=== PATIENT | male | born 1955 | race Caucasian/White ===

== ENCOUNTER → 2017-11-12 10:28 | Outpatient (CLI) | payer MEDICARE, MEDICAID, SELFPAY ==
[2017-11-12 13:44] LABS: Hematocrit 40.7 % (40-54); Hemoglobin 13.5 g/dl (13.0-16.5); Mean Corp Hgb Conc 33.2 g/gl (32-36); Mean Corpuscular Volume 93.3 fL (80-94); Mean Platelet Vol. 10.7 fl (6.2-12.0); Platelet Count 283 K/mm3 (150-450); RBC Distribution Width CV 15.9 % (11.6-14.6); RBC Distribution Width SD 53.3 fl (35.1-43.9); Red Blood Count 4.36 M/mm3 (4.6-6.2); White Blood Count 9.8 K/mm3 (4.4-11.0)
[2017-11-12 13:45] LABS: Scan Indicated on CBC? Y/N NO
[2017-11-12 13:57] LABS: Hemoglobin A1c 7.2 % (4.2-6.3)
[2017-11-12 14:00] LABS: Albumin, Serum 3.4 g/dL (3.2-5.0); BUN 59 mg/dL (7-18); BUN/Creat Ratio 27.2 RATIO (10-20); Calcium,Total 9.2 mg/dL (8.5-10.1); Chloride 99 mmol/L (98-107); Creatinine, Serum 2.17 mg/dL (0.70-1.30); EST Glomerular Filtration Rate 33 mL/min (>60); Est Glom Filt Rate - Afr Amer 40 mL/min (>60); Glucose 100 mg/dL (74-106); Phosphorus 3.3 mg/dL (2.5-4.9); Potassium 5.4 mmol/L (3.5-5.1); Sodium Level 137 mmol/L (136-145)
[2017-11-13 09:58] LABS: PTHIN 77.3 pg/mL (18.4-80.1)
== END ==
PROVIDERS: Family Provider Family Medicine; PCP Family Medicine; Visit Provider Internal Medicine Nephrology
DX: E11.22 Type 2 diabetes mellitus with diabetic chronic kidney disease (principal); N18.3 Chronic kidney disease, stage 3 (moderate)
CPT/HCPCS: 36415; 80069; 83036; 83970; 85027

== ENCOUNTER → 2017-11-18 09:18 | Outpatient (CLI) | payer MEDICARE, MEDICAID, SELFPAY ==
--- NOTE | 2017-11-18 09:34 | US_ITS ---
US Kidney(s) complete (eg, kidneys T bladder) INDICATION: ckd 3 COMPARISON: None TECHNIQUE: Ultrasonographic grayscale and limited Doppler investigation of the retroperitoneum including kidneys and urinary bladder FINDINGS: The right kidney measures 10.2 x 5.4 x 5.2 cm and demonstrates a cortical thickness of 1.2 cm. There is no evidence of hydronephrosis. A 1 cm shadowing calculus is noted in the midpole region. The left kidney measures 11.2 x 4.5 x 4.9 cm with a cortical thickness of 1.4 cm. There is no evidence of hydronephrosis. A 1 cm shadowing calculus is noted in the midpole region. The urinary bladder contains 176 mL at the time of the scan and appears within normal limits. The right ureteral jet was not visualized. The left ureteral jet was visualized. US/Kidney and Bladder IMPRESSION: Bilateral nephrolithiasis with single 1 cm bilateral renal stones. No evidence of hydronephrosis. at 1747 Reported and signed by: Zonia Christian MD Electronically Signed: Zonia Christian MD at 17:45 EDT Tel , Service support ,
[2017-11-18 10:42] LABS: 24HR. UA Prot. Total Volume 3000 mL
[2017-11-18 11:23] LABS: Albumin, Serum 3.4 g/dL (3.2-5.0); BUN 32 mg/dL (7-18); BUN/Creat Ratio 19.2 RATIO (10-20); Calcium,Total 8.9 mg/dL (8.5-10.1); Chloride 100 mmol/L (98-107); Creatinine, Serum 1.67 mg/dL (0.70-1.30); EST Glomerular Filtration Rate 44 mL/min (>60); Est Glom Filt Rate - Afr Amer 54 mL/min (>60); Glucose 61 mg/dL (74-106); Phosphorus 2.7 mg/dL (2.5-4.9); Potassium 4.3 mmol/L (3.5-5.1); Sodium Level 140 mmol/L (136-145)
[2017-11-18 12:09] LABS: Creat.Clear Total Volume 3000 mL; Creatinine Clearance 59 ml/min (100-200); Creatinine Serum Creat 1.7 mg/dL (0.8-1.3); Creatinine Urine 47.2 mg/dL (NO RANGE EST.); EST Glomerular Filtration Rate 44 mL/min (>60); Est Glom Filt Rate - Afr Amer 54 mL/min (>60)
== END ==
PROVIDERS: Family Provider Family Medicine; PCP Family Medicine; Visit Provider Internal Medicine Nephrology
DX: N17.9 Acute kidney failure, unspecified (principal); N18.3 Chronic kidney disease, stage 3 (moderate); N20.0 Calculus of kidney
CPT/HCPCS: 76770; 80069; 82575; 84156

== ENCOUNTER 2017-12-03 14:05 | Outpatient (RCR) | payer MEDICARE, MEDICAID, SELFPAY | END 2017-12-03 23:59 | LOC: DC 14:05 | PROVIDERS: Family Provider Family Medicine; PCP Family Medicine; Visit Provider Internal Medicine Nephrology | DX: E11.9 Type 2 diabetes mellitus without complications (principal); N18.3 Chronic kidney disease, stage 3 (moderate); Z71.3 Dietary counseling and surveillance | CPT/HCPCS: G0108 ==

== ENCOUNTER → 2017-12-22 10:32 | Outpatient (CLI) | payer MEDICARE, SELFPAY | PROVIDERS: Family Provider Family Medicine; PCP Family Medicine; Visit Provider Internal Medicine Nephrology | DX: N18.3 Chronic kidney disease, stage 3 (moderate) (principal) ==

== ENCOUNTER → 2017-12-22 10:53 | Outpatient (CLI) | payer MEDICARE, SELFPAY ==
[2017-12-22 12:56] LABS: Hematocrit 40.9 % (40-54); Hemoglobin 13.5 g/dl (13.0-16.5); Mean Corpuscular Hgb 31.2 pg (27.0-32.0); Mean Corpuscular Volume 94.5 fL (80-94); Mean Platelet Vol. 10.3 fl (6.2-12.0); Platelet Count 380 K/mm3 (150-450); RBC Distribution Width CV 17.8 % (11.6-14.6); RBC Distribution Width SD 59.9 fl (35.1-43.9); Red Blood Count 4.33 M/mm3 (4.6-6.2)
[2017-12-22 12:57] LABS: Scan Indicated on CBC? Y/N NO
[2017-12-22 13:12] LABS: Albumin, Serum 3.3 g/dL (3.2-5.0); BUN 40 mg/dL (7-18); BUN/Creat Ratio 23.4 RATIO (10-20); Calcium,Total 9.2 mg/dL (8.5-10.1); Chloride 100 mmol/L (98-107); Creatinine, Serum 1.71 mg/dL (0.70-1.30); EST Glomerular Filtration Rate 43 mL/min (>60); Est Glom Filt Rate - Afr Amer 52 mL/min (>60); Glucose 81 mg/dL (74-106); Phosphorus 3.7 mg/dL (2.5-4.9); Potassium 4.7 mmol/L (3.5-5.1); Sodium Level 137 mmol/L (136-145)
[2017-12-22 13:21] LABS: Hemoglobin A1c 6.9 % (4.2-6.3)
[2017-12-23 08:42] LABS: PTHIN 56.4 pg/mL (18.4-80.1)
== END ==
PROVIDERS: Family Provider Family Medicine; PCP Family Medicine; Visit Provider Internal Medicine Nephrology
DX: E87.5 Hyperkalemia (principal); N17.9 Acute kidney failure, unspecified; E11.22 Type 2 diabetes mellitus with diabetic chronic kidney disease; N18.3 Chronic kidney disease, stage 3 (moderate)
CPT/HCPCS: 36415; 80069; 83036; 83970; 85027

== ENCOUNTER → 2018-02-11 09:12 | Outpatient (CLI) | payer MEDICARE, SELFPAY | PROVIDERS: Family Provider Family Medicine; PCP Family Medicine; Visit Provider Family Medicine | DX: E11.9 Type 2 diabetes mellitus without complications (principal) | CPT/HCPCS: 36415 ==

== ENCOUNTER → 2018-07-20 12:11 | Outpatient (CLI) | payer MEDICARE, SELFPAY ==
[2018-07-20 11:30] VITALS: BMI 34.8
[2018-07-20 14:35] LABS: AST(SGOT) 17 U/L (15-37); Alanine Aminotransfer ALT/SGPT 13 U/L (16-61); Albumin, Serum 3.4 g/dL (3.2-5.0); Alkaline Phosphatase 63 U/L (45-117); Anion Gap 8 (5-15); BUN 31 mg/dL (7-18); BUN/Creat Ratio 17.6 RATIO (10-20); Bilirubin, Direct 0.15 mg/dL (0.00-0.30); Calcium,Total 9.2 mg/dL (8.5-10.1); Chloride 99 mmol/L (98-107); Cholesterol 174 mg/dL (200); Creatinine, Serum 1.76 mg/dL (0.70-1.30); EST Glomerular Filtration Rate 42 mL/min (>60); Est Glom Filt Rate - Afr Amer 50 mL/min (>60); Globulin 4.1 g/dL (2.2-4.2); Glucose 60 mg/dL (74-106); High Density Lipoprotein 35 mg/dL; Potassium 4.6 mmol/L (3.5-5.1); Protein, Total 7.5 g/dL (6.4-8.2); Sodium Level 141 mmol/L (136-145); Triglycerides 185 mg/dL; Very Low Density Lipoprotein 37 mg/dL (5-40)
== END ==
PROVIDERS: Family Provider Family Medicine; PCP Family Medicine; Referring Provider Internal Medicine Cardiovascular Disease; Visit Provider Internal Medicine Cardiovascular Disease
DX: E78.5 Hyperlipidemia, unspecified (principal); I10 Essential (primary) hypertension
CPT/HCPCS: 36415; 80048; 80061; 80076

== ENCOUNTER → 2018-09-27 09:13 | Outpatient (CLI) | payer MEDICARE, SELFPAY ==
[2018-07-20 11:30] VITALS: BMI 34.8
[2018-09-27 11:07] LABS: Anion Gap 4 (5-15); BUN 22 mg/dL (7-18); BUN/Creat Ratio 14.6 RATIO (10-20); Calcium,Total 8.9 mg/dL (8.5-10.1); Chloride 103 mmol/L (98-107); Creatinine, Serum 1.51 mg/dL (0.70-1.30); EST Glomerular Filtration Rate 50 mL/min (>60); Est Glom Filt Rate - Afr Amer 60 mL/min (>60); Glucose 58 mg/dL (74-106); Potassium 4.7 mmol/L (3.5-5.1); Sodium Level 139 mmol/L (136-145)
== END ==
PROVIDERS: Family Provider Family Medicine; PCP Family Medicine; Referring Provider Family Medicine; Visit Provider Family Medicine
DX: N28.9 Disorder of kidney and ureter, unspecified (principal)
CPT/HCPCS: 36415; 80048

== ENCOUNTER → 2019-02-07 07:48 | Outpatient (CLI) | payer MEDICARE, SELFPAY ==
[2019-01-28 14:53] VITALS: BMI 33.6
--- NOTE | 2019-02-07 07:49 | AAVD_ITS ---
Reason For Study: AAA Aorta Measurements Aorta Doppler Measurements Proximal aorta measures1.62 x 1.61cm. in cross- Peak systolic flow velocities within the proximal sectional axis. aorta measure 55.6 cm/sec. Proximal aorta measures1.71cm. in longitudinal Peak systolic flow velocities within the mid aorta axis. measure 42.4 cm/sec. Mid aorta measures3.33 x 3.27cm. in cross- Peak systolic flow velocities within the distal sectional axis. aorta measure 40.6 cm/sec. Mid aorta measures3.30cm. in longitudinal axis. Distal aorta measures2.96 x 2.96cm. in cross- sectional axis. Distal aorta measures2.95cm. in longitudinal axis. Left Iliac Artery Unable to visualize Lt Iliac artery due to bowel gas and pt body habitus. Right Iliac Artery Unable to visualize Rt Iliac artery due to bowel gas and pt body habitus. Procedure Aorta IVC Iliac vasculature or bypass grafts [id number]. Technically difficult due to pt body habitus and bowel gas. Exam performed in department. Interpretation Summary Mid infra renal aorta 3.33 x 3.27cm aneurysm Body habitus and bowel gas prevent inspecton of bilateral common iliac arteries. Ordering Physician: Marcie Hernandez Referring Physician: Dmitry Davidson Performed By: Amelia Arias RVT
== END ==
PROVIDERS: Family Provider Family Medicine; PCP Family Medicine; Referring Provider Physician Assistant Medical; Visit Provider Physician Assistant Medical
DX: I25.708 Atherosclerosis of coronary artery bypass graft(s), unspecified, with other forms of angina pectoris (principal); I71.4 Abdominal aortic aneurysm, without rupture; I10 Essential (primary) hypertension
CPT/HCPCS: 93978

== ENCOUNTER → 2019-02-21 08:43 | Outpatient (CLI) | payer MEDICARE, SELFPAY ==
[2019-01-28 14:53] VITALS: BMI 33.6
[2019-02-21 10:37] LABS: AST(SGOT) 16 U/L (15-37); Alanine Aminotransfer ALT/SGPT 11 U/L (16-61); Albumin, Serum 3.3 g/dL (3.2-5.0); Alkaline Phosphatase 69 U/L (45-117); Bilirubin, Direct 0.11 mg/dL (0.00-0.30); Cholesterol 183 mg/dL (200); Globulin 4.3 g/dL (2.2-4.2); High Density Lipoprotein 30 mg/dL; Protein, Total 7.6 g/dL (6.4-8.2); Triglycerides 236 mg/dL; Very Low Density Lipoprotein 47 mg/dL (5-40)
== END ==
PROVIDERS: Family Provider Family Medicine; PCP Family Medicine; Referring Provider Physician Assistant Medical; Visit Provider Physician Assistant Medical
DX: I25.708 Atherosclerosis of coronary artery bypass graft(s), unspecified, with other forms of angina pectoris (principal); I10 Essential (primary) hypertension; E78.00 Pure hypercholesterolemia, unspecified
CPT/HCPCS: 36415; 80061; 80076

== ENCOUNTER → 2019-10-28 09:04 | Outpatient (CLI) | payer MEDICARE, SELFPAY ==
[2019-01-28 14:53] VITALS: BMI 33.6
[2019-10-28 10:16] LABS: International Normalized Ratio 2.8; Prothrombin Time (Protime)PT. 28.8 SECONDS (11.7-14.9)
== END ==
PROVIDERS: PCP Family Medicine; Referring Provider Family Medicine; Visit Provider Family Medicine
DX: I71.4 Abdominal aortic aneurysm, without rupture (principal)
CPT/HCPCS: 36415; 85610

== ENCOUNTER 2019-11-25 08:26 | Outpatient (RCR) | payer MEDICARE, SELFPAY ==
[2019-01-28 14:53] VITALS: BMI 33.6
[2019-11-25 10:32] LABS: International Normalized Ratio 1.9; Prothrombin Time (Protime)PT. 21.5 SECONDS (11.7-14.9)
== END 2019-11-25 18:00 | disposition home or self-care (01) ==
LOC: MTLAB 08:26
PROVIDERS: PCP Family Medicine; Referring Provider Family Medicine; Visit Provider Family Medicine
DX: Z86.73 Personal history of transient ischemic attack (TIA), and cerebral infarction without residual deficits (principal)
CPT/HCPCS: 36415; 85610

== ENCOUNTER → 2020-02-17 11:44 | Outpatient (CLI) | payer MEDICARE, SELFPAY ==
[2019-12-06 09:50] VITALS: BMI 33.8
[2020-02-17 15:33] LABS: PSA,Total- Diagnostic 0.33 ng/mL (0.0-4.0)
== END ==
PROVIDERS: Family Medicine; PCP Family Medicine; Referring Provider Family Medicine; Visit Provider Family Medicine
DX: R39.11 Hesitancy of micturition (principal)
CPT/HCPCS: 36415; 84153; 87086; 87088

== ENCOUNTER → 2020-03-20 07:50 | Outpatient (CLI) | payer MEDICARE, SELFPAY ==
[2020-03-13 09:16] VITALS: BMI 34.6
--- NOTE | 2020-03-20 07:52 | AAVD_ITS ---
Reason For Study: infrarenal aneurysm Aorta Measurements Aorta Doppler Measurements Proximal aorta measures1.95 x 1.95cm. in cross- Peak systolic flow velocities within the proximal sectional axis. aorta measure 134.8 cm/sec. Proximal aorta measures2.0cm. in longitudinal Peak systolic flow velocities within the mid aorta axis. measure 44.3 cm/sec. Mid aorta measures3.28 x 3.4cm. in cross-sectionalPeak systolic flow velocities within the distal axis. aorta measure 79.4 cm/sec. Mid aorta measures3.18cm. in longitudinal axis. Distal aorta measures1.52 x 1.59cm. in cross- sectional axis. Distal aorta measures1.67cm. in longitudinal axis. Left Iliac Artery Unable to visualize Lt Iliac artery due to bowel gas and pt body habitus. Right Iliac Artery Unable to visualize Lt Iliac artery due to bowel gas and pt body habitus. Procedure Aorta IVC Iliac vasculature or bypass grafts [id number]. The exam was diagnostic. Difficult study due to bowel gas and body habitus. Pt ate this AM due to low blood sugar. Exam performed in department. Interpretation Summary 3.28 x 3.4 cm infrarenal abdominal aortic aneurysm Limited examination and unable to visualize iliacs secondary to bowel gas and body habitus. Slightly increased flow velocity proximal aorta Previously 3.33 x 3.27cm on 02/07/19. No significant change Ordering Physician: Marcie Hernandez Performed By: Donnie Wilkes, RVT
== END ==
PROVIDERS: PCP Family Medicine; Referring Provider Physician Assistant Medical; Visit Provider Physician Assistant Medical
DX: I10 Essential (primary) hypertension (principal); I71.4 Abdominal aortic aneurysm, without rupture
CPT/HCPCS: 93978

== ENCOUNTER → 2020-04-11 09:29 | Outpatient (CLI) | payer MEDICARE, SELFPAY ==
[2020-03-13 09:16] VITALS: BMI 34.6
[2020-04-11 10:21] LABS: AST(SGOT) 18 U/L (15-37); Alanine Aminotransfer ALT/SGPT 13 U/L (16-61); Albumin, Serum 3.1 g/dL (3.2-5.0); Alkaline Phosphatase 79 U/L (45-117); Bilirubin, Direct 0.14 mg/dL (0.00-0.30); Cholesterol 157 mg/dL (200); Globulin 4.7 g/dL (2.2-4.2); High Density Lipoprotein 34 mg/dL; Protein, Total 7.8 g/dL (6.4-8.2); Triglycerides 193 mg/dL; Very Low Density Lipoprotein 39 mg/dL (5-40)
[2020-04-11 10:30] LABS: ALB/GLOB Ratio 0.7 RATIO (0.9-2.4); AST(SGOT) 14 U/L (15-37); Alanine Aminotransfer ALT/SGPT 10 U/L (16-61); Albumin, Serum 3.1 g/dL (3.2-5.0); Alkaline Phosphatase 78 U/L (45-117); Anion Gap 6 (5-15); BUN 29 mg/dL (7-18); BUN/Creat Ratio 16.3 RATIO (10-20); Calcium,Total 9.4 mg/dL (8.5-10.1); Chloride 104 mmol/L (98-107); Creatinine, Serum 1.78 mg/dL (0.70-1.30); EST Glomerular Filtration Rate 41 mL/min (>60); Est Glom Filt Rate - Afr Amer 49 mL/min (>60); Globulin 4.6 g/dL (2.2-4.2); Glucose 79 mg/dL (74-106); Potassium 4.5 mmol/L (3.5-5.1); Protein, Total 7.7 g/dL (6.4-8.2); Sodium Level 139 mmol/L (136-145)
== END ==
PROVIDERS: Physician Assistant Medical; PCP Family Medicine; Referring Provider Family Medicine; Visit Provider Family Medicine
DX: E11.40 Type 2 diabetes mellitus with diabetic neuropathy, unspecified (principal); I25.10 Atherosclerotic heart disease of native coronary artery without angina pectoris; I25.5 Ischemic cardiomyopathy
CPT/HCPCS: 36415; 80053; 80061; 80076

== ENCOUNTER → 2020-07-09 08:54 | Outpatient (CLI) | payer MEDICARE, SELFPAY ==
[2020-03-13 09:16] VITALS: BMI 34.6
[2020-07-09 10:45] LABS: Anion Gap 4 (5-15); BUN 37 mg/dL (7-18); BUN/Creat Ratio 17.2 RATIO (10-20); Calcium,Total 9.5 mg/dL (8.5-10.1); Chloride 99 mmol/L (98-107); Creatinine, Serum 2.15 mg/dL (0.70-1.30); EST Glomerular Filtration Rate 33 mL/min (>60); Est Glom Filt Rate - Afr Amer 40 mL/min (>60); Glucose 93 mg/dL (74-106); Potassium 4.5 mmol/L (3.5-5.1); Sodium Level 134 mmol/L (136-145)
== END ==
PROVIDERS: PCP Family Medicine; Visit Provider Family Medicine
DX: N28.9 Disorder of kidney and ureter, unspecified (principal)
CPT/HCPCS: 36415; 80048

== ENCOUNTER → 2020-07-30 08:52 | Outpatient (CLI) | payer MEDICARE, SELFPAY ==
[2020-03-13 09:16] VITALS: BMI 34.6
[2020-07-30 10:04] LABS: Prothrombin Time (Protime)PT. 47.6 SECONDS (11.7-14.9)
[2020-07-30 10:19] LABS: International Normalized Ratio 5.1
== END ==
PROVIDERS: PCP Family Medicine; Referring Provider Nurse Practitioner Adult Health; Visit Provider Nurse Practitioner Adult Health
DX: I63.9 Cerebral infarction, unspecified (principal)
CPT/HCPCS: 36415; 85610

== ENCOUNTER → 2020-10-11 09:14 | Outpatient (CLI) | payer MEDICARE, SELFPAY ==
[2020-03-13 09:16] VITALS: BMI 34.6
[2020-10-11 11:05] LABS: Anion Gap 5 (5-15); BUN 29 mg/dL (7-18); BUN/Creat Ratio 16.3 RATIO (10-20); Calcium,Total 9.1 mg/dL (8.5-10.1); Chloride 98 mmol/L (98-107); Cholesterol 194 mg/dL (200); Creatinine, Serum 1.78 mg/dL (0.70-1.30); EST Glomerular Filtration Rate 41 mL/min (>60); Est Glom Filt Rate - Afr Amer 49 mL/min (>60); Glucose 132 mg/dL (74-106); High Density Lipoprotein 38 mg/dL; Potassium 4.4 mmol/L (3.5-5.1); Sodium Level 136 mmol/L (136-145); Triglycerides 247 mg/dL; Very Low Density Lipoprotein 49 mg/dL (5-40)
[2020-10-11 13:15] LABS: Microalbumin,Random Urine 13.6 mg/L (NO RANGE EST.); Microalbumin:Creatinine Ratio 91.3 mg/g CRE (<30 mg/g CRE)
== END ==
PROVIDERS: PCP Family Medicine; Referring Provider Family Medicine; Visit Provider Family Medicine
DX: E11.9 Type 2 diabetes mellitus without complications (principal)
CPT/HCPCS: 36415; 80048; 80061; 82043; 82570

== ENCOUNTER → 2020-11-22 06:46 | Outpatient (CLI) | payer MEDICARE, SELFPAY ==
[2020-11-08 10:11] VITALS: BMI 34.6
--- NOTE | 2020-11-22 17:02 | STRESSREP ---
Stress Test Report Pharmacologic myocardial perfusion stress test. 65-year-old man with a history of coronary artery bypass surgery. Stress protocol: Resting EKG demonstrates sinus rhythm with a rate of 92 bpm and incomplete left bundle branch block is noted resting blood pressure is 110/68 mmHg. 0.4 mg of regadenoson was infused per usual protocol followed byIntravenous saline flush injection continuous EKG monitoring was performed. Patient maintained sinus rhythm throughout the recording. Nonspecific left bundle branch block changes were noted throughout the infusion. The maximum heart rate 104 bpm which was 67% of maximum predicted heart rate the maximum workload was 1 metabolic equivalent. The final blood pressure was 108/70 mmHg. Myocardial perfusion protocol. 14.8 mCi of technetium 99m sestamibi was injected at rest. 0.4 mg of regadenoson was infused per usual protocol. At peak infusion 44.1 mCi of technetium 99m sestamibi was injected stress images were obtained stress and rest images were reconstructed and compared in the short axis vertical long and horizontal long axis. Gated images were also obtained to Perfusion SPECT analysis: Review of the stress images demonstrated dilated cardiac silhouette size. There is a medium-sized perfusion defect noted involving the mid anterior wall extending to the apex. The anterior septal wall also has reduced perfusion. There is also an area of reduced perfusion involving the inferior septal wall. On the resting images there is an identical pattern noted in these areas suggestive of a previous anterior apical infarct, and inferior septal infarct. No obvious areas of improvement are noted to suggest ischemia. Gated SPECT analysis: The gated ejection fraction demonstrates a dilated cardiac silhouette with wall motion abnormalities and estimated ejection fraction of 29%. Conclusion: Pharmacologic myocardial perfusion stress test with evidence of anterior apical infarct. Previous inferior septal basal infarct present. Dilated ischemic cardiomyopathy present
== END ==
PROVIDERS: PCP Family Medicine; Referring Provider Physician Assistant Medical; Visit Provider Physician Assistant Medical
DX: I25.10 Atherosclerotic heart disease of native coronary artery without angina pectoris (principal); I25.810 Atherosclerosis of coronary artery bypass graft(s) without angina pectoris
CPT/HCPCS: 78452; 93017; A9500; A4216; J2785

== ENCOUNTER → 2021-01-11 08:36 | Outpatient (CLI) | payer MEDICARE, SELFPAY ==
[2020-11-08 10:11] VITALS: BMI 34.6
[2021-01-11 12:48] LABS: Anion Gap 8 (5-15); BUN 32 mg/dL (7-18); BUN/Creat Ratio 17.8 RATIO (10-20); Calcium,Total 9.4 mg/dL (8.5-10.1); Chloride 96 mmol/L (98-107); Cholesterol 189 mg/dL (200); EST Glomerular Filtration Rate 40 mL/min (>60); Est Glom Filt Rate - Afr Amer 49 mL/min (>60); Glucose 93 mg/dL (74-106); High Density Lipoprotein 36 mg/dL; Potassium 4.6 mmol/L (3.5-5.1); Sodium Level 136 mmol/L (136-145); Triglycerides 177 mg/dL
[2021-01-11 12:49] LABS: Very Low Density Lipoprotein 35 mg/dL (5-40)
[2021-01-11 12:54] LABS: Microalbumin,Random Urine 58.6 mg/L (NO RANGE EST.); Microalbumin:Creatinine Ratio 88.7 mg/g CRE (<30 mg/g CRE)
[2021-01-11 12:58] LABS: BNP,B-Type NATRIURETIC PEPTIDE 411.1 pg/mL (0-100)
== END ==
PROVIDERS: PCP Family Medicine; Visit Provider Family Medicine
DX: E78.5 Hyperlipidemia, unspecified (principal); R06.02 Shortness of breath
CPT/HCPCS: 36415; 80048; 80061; 82043; 82570; 83880

== ENCOUNTER → 2021-01-16 13:56 | Outpatient (CLI) | payer MEDICARE, SELFPAY ==
[2020-11-08 10:11] VITALS: BMI 34.6
--- NOTE | 2021-01-16 13:59 | ECHOCS_ITS ---
Reason For Study: SOB Procedure This was a 2D Doppler, Color Flow transthoracic echocardiogram. The study was technically difficult. Due to body habitus. Contrast injection was performed. Exam performed in department. Left Ventricle Normal LV size. The estimated ejection fraction is 30 %. Moderately severe segmental systolic dysfunction (see wall motion). Vowinckel : Akinetic. Mid-Anterior : Akinetic. Mid-anteroseptal : Akinetic. Septal Vowinckel : Hypokinetic. Right Ventricle Normal RV size. ICD or pacer leads identified within the right ventricle. Normal systolic function. Mitral Valve Mitral valve not well visualized. Tricuspid Valve The tricuspid valve is not well visualized. Pericardium/Pleural No pericardial effusion. Medication 22 gauge I.V. with prn adaptor inserted into right arm. Diluted definity 2.4ml given slow IV push to enhance endocardial definition. MMode/2D Measurements & Calculations LVIDd: 6.2 cm IVSd: 0.91 cm Ao root diam: 2.9 cm LVIDs: 5.2 cm LVPWd: 1.1 cm FS: 15.3 % LAV(MOD-bp): 56.1 ml LA dimension(2D): 3.5 cm LA A4 area: 18.3 cm2 LAV(MOD-bp) Indexed: 26.8 ml/m2 LAV(MOD-sp2): 64.3 ml LAV(MOD-sp4): 47.6 ml Doppler Measurements & Calculations MV E max ramses: 56.3 cm/sec Lat Peak E' Ramses: 6.2 cm/sec Med Peak E' Ramses: 4.3 cm/sec MV A max ramses: 93.3 cm/sec E/E' lat: 9.1 E/E' med: 13.0 MV E/A: 0.60 Ao V2 max: 144.9 cm/sec LV V1 max: 92.3 cm/sec PA V2 max: 125.5 cm/sec Ao max P.4 mmHg LV V1 max P.4 mmHg ECHO/Echo Complete W/ Contrast Interpretation Summary Normal LV size. The estimated ejection fraction is 30 %. Moderately severe segmental systolic dysfunction (see wall motion). Contrast injection was performed. Compared to previous study, the left ventricu lar systolic function is the same.. Ordering Physician: Dmitry Davidson Referring Physician: Dmitry Davidson Performed By: Nuha Whalen, ARMANDO, RVT
== END ==
PROVIDERS: PCP Family Medicine; Visit Provider Family Medicine
DX: R06.02 Shortness of breath (principal)
CPT/HCPCS: 93306; Q9957; A4216; C8929; J3490

== ENCOUNTER 2021-04-09 08:01 | Inpatient (IN) | payer MEDICARE, SELFPAY ==
[2021-04-09] VITALS (16 sets, daily range): BP systolic 97–142; BP diastolic 47–93; PULSE 74–84; RESP 15–34; TEMP 36.4–36.9; O2SAT 87–96; BMI 34.2; BMI 33.5
--- NOTE | 2021-04-09 08:14 | EKG12_ITS ---
Test Reason : SOB Blood Pressure : / mmHG Vent. Rate : 076 BPM Atrial Rate : 085 BPM P-R Int : 000 ms QRS Dur : 128 ms QT Int : 422 ms P-R-T Axes : 000 097 236 degrees QTc Int : 474 ms Sinus rhythm Non-specific intra-ventricular conduction block Nonspecific T wave abnormality Abnormal ECG Confirmed by KAROLINA ALVARENGA, ROBERTO ([id number]), timber spotter PB METZ ([id number]) on 04/15/2021 9:23:47 A M Referred By: JEFFREY Confirmed By:ADELINA TURCIOS MD
--- NOTE | 2021-04-09 08:15 | EDS_ITS ---
HPI History of Present Illness Chief Complaint: Shortness of Breath Narrative Narrative: 65-year-old male with history of CHF, ischemic cardiomyopathy, hypertension, COPD presenting with dyspnea. He states is been ongoing for a couple of weeks. Patient states that his primary care provider provided him steroids and an albuterol inhaler but he has not improved. He has an old oxygen concentrator which he has been using without a prescription. He states that he did had used this in the past. Patient has been wearing 4 to 5 L at home. Patient also has CPAP but does not use this. He states that he is supposed to but does not. Patient is denying any chest pain but does admit to a cough. He states that his lower extremities have slightly more edema and he is on 80 of Lasix daily which has been unchanged for about a year. No fever, cough, change in taste or smell. No body aches. [facility] Medical History Abdominal aortic aneurysm Aneurysm of infrarenal abdominal aorta Atherosclerosis of coronary artery bypass graft(s), unspecified, with other forms of angina pectoris Atherosclerosis of coronary artery without angina pectoris Bilateral leg edema Chronic systolic CHF (congestive heart failure) COPD (chronic obstructive pulmonary disease) Diabetes mellitus type 2 with complications Diabetic neuropathy Essential (primary) hypertension Hyperlipidemia Incomplete left bundle branch block Ischemic cardiomyopathy long term care social worker current use of anticoagulant Obesity Obstructive sleep apnea Old anterior wall myocardial infarction Renal insufficiency TIA (transient ischemic attack) Home Medications atorvastatin 40 mg PO QHS 10/07/15 [History Last Taken Unknown] insulin detemir U-100 85 units SC BREAKFAST 10/07/15 [History Last Taken 01/15/17 1/2 dose] isosorbide mononitrate 120 mg PO DAILY 10/07/15 [History Last Taken 01/15/17] metoprolol tartrate 100 mg PO BID 10/07/15 [History Last Taken 01/15/17] multivitamin 1 ea PO DAILY 10/07/15 [History Last Taken Unknown] insulin detemir U-100 100 unit SQ QHS 01/14/17 [History Last Taken Unknown] insulin lispro 100 unit/mL subcutaneous cartridge 1 sliding scale dose SC UD PRN ml 07/10/17 [History Last Taken Unknown] warfarin 5 mg tablet 5 mg PO .COMPLEX 07/10/17 [History Last Taken Unknown] esomeprazole magnesium 40 mg capsule,delayed release 40 mg PO QDAY cap 08/21/17 [History Last Taken Unknown] fluticasone 250 mcg-salmeterol 50 mcg/dose blistr powdr for inhalation 1 inh INHALATION BID 03/13/20 [History Last Taken Unknown] ipratropium 20 mcg-albuterol 100 mcg/actuation mist for inhalation 1 puff INHALATION Q6H 03/13/20 [History Last Taken Unknown] furosemide 80 mg tablet 80 mg PO QDAY #90 tab 06/27/20 [Rx Last Taken Unknown] enalapril maleate 5 mg tablet See Rx Instructions .ROUTE .COMPLEX #90 tablet 10/05/20 [Rx Last Taken Unknown] albuterol sulfate 90 mcg/actuation aerosol inhaler 1 inh INHALATION ONCE 11/08/20 [History Last Taken Unknown] isosorbide mononitrate 60 mg tablet,extended release 24 hr 60 mg PO QPM #90 tab 11/08/20 [Rx Last Taken Unknown] ranolazine 1,000 mg tablet,extended release,12 hr 1,000 mg PO BID #180 tab 12/19/20 [Rx Last Taken Unknown] nitroglycerin 0.4 mg sublingual tablet 0.4 mg SUBLINGUAL Q5-15M PRN #25 tab 03/08/21 [Rx Last Taken Unknown] Allergy/AdvReac Type Severity Reaction Status Date / Time acetaminophen [From Percocet] Allergy Unknown Verified 04/09/21 08:09 buspirone [From BuSpar] Allergy Unknown Verified 04/09/21 08:09 Gadolinium-MRI Contrast Allergy Unknown Verified 04/09/21 08:09 Medium [DYE] nifedipine [From Procardia] Allergy Unknown Verified 04/09/21 08:09 oxycodone [From Percocet] Allergy Unknown Verified 04/09/21 08:09 Penicillins Allergy Unknown Verified 04/09/21 08:09 rosuvastatin [From Crestor] Allergy Unknown Verified 04/09/21 08:09 morphine AdvReac Other Verified 04/09/21 08:09 Family History Father , age 65 CVA (cerebral vascular accident) of CVA during cardiac surgery; also had previous CVA's Myocardial infarction First IN age 60, had multiple IN's Mother Breast cancer COPD (chronic obstructive pulmonary disease) Diabetes Brother , age 52 from sepsis CAD (coronary artery disease) Brother , age 52 after 3 vessel CABG CAD (coronary artery disease) Hx of CABG Sister , age 61 complications of MRSA s/p CABG, 5 vessel CAD (coronary artery disease) Myocardial infarction, Onset Age: 40 Hx of CABG Sister CAD (coronary artery disease) HX PTCA Myocardial infarction, Onset Age: 40 Sister CAD (coronary artery disease) Hx of CABG Myocardial infarction, Onset Age: 58 Sister , in MVA No problems noted. Sister CAD (coronary artery disease) Myocardial infarction, Onset Age: 40 CVA (cerebral vascular accident) had 3 strokes Grandfather , age62 CAD (coronary artery disease) Sudden cardiac Myocardial infarction Surgical History H/O coronary artery bypass surgery History of electrophysiologic study (2004) History of implantable cardiac defibrillator (ICD) (01/15/17) History of left heart catheterization (01/2010) Stented coronary artery Social History Smoking Status: Former smoker ROS ROS ED Constitutional Constitutional ED: Denies chills or fever(s) Eyes Eyes: Denies blurry vision or diplopia ENT ENT ED: Denies rhinorrhea or sore throat Cardiovascular Cardiovascular: Denies chest pain or palpitations Respiratory/Chest Respiratory/Chest: Reports cough, dyspnea and dyspnea on exertion Gastrointestinal Gastrointestinal: Denies abdominal pain, nausea or vomiting Genitourinary Genitourinary ED: Denies dysuria or hematuria Musculoskeletal Musculoskeletal: Denies arthralgias or myalgias Integumentary Denies Abrasions or rash EXAM Physical Exam Const Vital Signs: 04/09/21 08:02 04/09/21 08:05 04/09/21 08:08 Temperature 97.9 F 97.9 F Temperature Source Oral Oral Pulse Rate 80 81 Respiratory Rate 34 H 28 H Respiratory Effort Short of Breath Respiratory Depth Deep Respiratory Pattern Tachypnea Blood Pressure 142/93 H 142/93 H Blood Pressure Mean 109 109 Pulse Ox 92 87 Oxygen Delivery Method Room Air Room Air Nasal Cannula Oxygen Flow Rate (L/min) 4 04/09/21 08:30 04/09/21 08:41 Temperature 97.9 F Temperature Source Oral Pulse Rate 75 Respiratory Rate 20 H Respiratory Effort Respiratory Depth Respiratory Pattern Tachypnea Blood Pressure Blood Pressure Mean Pulse Ox 96 Oxygen Delivery Method Nasal Cannula Oxygen Flow Rate (L/min) 4 Positive obese General Appearance ED: NAD; Negative for pallor Nutritional Appearance: obese HEENT Reports dry mucous membranes atraumatic Mouth ED: Yes dry mucous membranes Mouth: dry mucous membranes Eyes PERRL and EOMs intact bilaterally Neck no lymphadenopathy and supple Resp Resp Narrative: Tachypneic without accessory muscle use. Speaking in full sentences. Auscultation: wheezes scattered wheezes Cardio regular rate and regular rhythm Extremity General Extremety ED: Yes edema; Negative for tenderness General Extremity: edema Neuro oriented x3, CN's II-XII intact bilaterally and no sensory deficits noted Sensorium / Orientation: alert Motor Exam: strength 5/5 throughout Psych mental status grossly normal Thought Process: normal thought process Skin General Skin Exam: Negative for jaundice or pallor Lesions: no lesions Rashes: no rashes MDM MDM MDM Narrative Medical decision making narrative: Patient presented with shortness of breath and lower extremity edema for his history of CHF and COPD. He is wheezing and was given some breathing treatments as well as Solu-Medrol. EKG on my interpretation shows a normal sinus rhythm with a ventricular rate of 76 bpm. The respiration 128 ms, QTC 474 ms. Patient CBC shows no leukocytosis. Hemoglobin hematocrit are stable. INR is therapeutic at 2.2. Creatinine is 1.82 which is about baseline for him. Electrolytes unremarkable. LFTs are normal. Lactic acid 1.1. BNP 852. Troponin 34. Chest x-ray on my interpretation shows vascular congestion with left pleural effusion on my interpretation and the radiologist does agree. Patient has history of CHF and he was given Lasix in the ED. Given his requirement for oxygen which is not prescribed I recommended that he be admitted to the hospital. Patient discussed with hospitalist and admitted in stable condition. Covid PCR is pending at this time will be followed by the hospitalist. Impression: #1 CHF exacerbation 2. Hypoxic respiratory failure 3. COPD exacerbation Lab Data Labs: Laboratory Results - last 24 hr 04/09/21 04/09/21 04/09/21 08:14 08:14 08:14 WBC 8.4 RBC 4.00 L Hgb 12.5 L Hct 39.8 L MCV 99.5 H MCH 31.3 MCHC 31.4 L RDW Std Deviation 55.1 H RDW Coeff of Whit 15.0 H Plt Count 323 MPV 10.2 Immature Gran % (Auto) 0.400 Neut % (Auto) 76.4 H Lymph % (Auto) 9.9 L Patrick % (Auto) 10.0 Eos % (Auto) 3.1 Baso % (Auto) 0.2 Absolute Neuts (auto) 6.4 Absolute Lymphs (auto) 0.83 Nucleated RBC % 0 PT 23.6 H INR 2.2 APTT 40.2 H Sodium 136 Potassium 5.0 Chloride 96 L Carbon Dioxide 37.0 H Anion Gap 3 L BUN 30 H Creatinine 1.82 H Estim Creat Clear Calc 37.33 Est GFR (MDRD) Af Amer 48 L Est GFR (MDRD) Non-Af 40 L BUN/Creatinine Ratio 16.5 Glucose 175 H Lactic Acid Calcium 8.8 Total Bilirubin 0.50 AST 13 L ALT 10 L Alkaline Phosphatase 67 Troponin I High Sens 34 B-Natriuretic Peptide Total Protein 7.5 Albumin 3.0 L Globulin 4.5 H Albumin/Globulin Ratio 0.7 L Urine Color Urine Clarity Urine pH Ur Specific Sheridan Urine Protein Urine Glucose (UA) Urine Ketones Urine Occult Blood Urine Nitrite Urine Bilirubin Urine Urobilinogen Ur Leukocyte Esterase Urine RBC Urine WBC Ur Squamous Epith Cells Urine Bacteria Urine Mucus 04/09/21 04/09/21 04/09/21 08:14 08:25 08:54 WBC RBC Hgb Hct MCV MCH MCHC RDW Std Deviation RDW Coeff of Whit Plt Count MPV Immature Gran % (Auto) Neut % (Auto) Lymph % (Auto) Patrick % (Auto) Eos % (Auto) Baso % (Auto) Absolute Neuts (auto) Absolute Lymphs (auto) Nucleated RBC % PT INR APTT Sodium Potassium Chloride Carbon Dioxide Anion Gap BUN Creatinine Estim Creat Clear Calc Est GFR (MDRD) Af Amer Est GFR (MDRD) Non-Af BUN/Creatinine Ratio Glucose Lactic Acid 1.1 Calcium Total Bilirubin AST ALT Alkaline Phosphatase Troponin I High Sens B-Natriuretic Peptide 852.2 H Total Protein Albumin Globulin Albumin/Globulin Ratio Urine Color Yellow Urine Clarity Clear Urine pH 6.0 Ur Specific Sheridan 1.015 Urine Protein Negative Urine Glucose (UA) Normal Urine Ketones Negative Urine Occult Blood Negative Urine Nitrite Negative Urine Bilirubin Negative Urine Urobilinogen Normal Ur Leukocyte Esterase Negative Urine RBC 0 SEEN Urine WBC 0 SEEN Ur Squamous Epith Cells 0 SEEN Urine Bacteria 0 SEEN Urine Mucus 0 SEEN Radiography Diagnostic Testing: Radiology Impression Chest X-Ray 04/09/21 08:52 IMPRESSION: 1. Unfavorable change. Interstitial dominant opacities with vascular congestion and small left pleural effusion, favor CHF/pulmonary edema over infection. Electronically Signed: Jeremy Powell MD (Brooks) at 9:06 EDT , Service support , Discharge Plan Triage Chief Complaint: Shortness of Breath ED Provider: Kirit Sabillon Dx/Rx/DC Orders Prescriptions: No Action esomeprazole magnesium 40 mg capsule,delayed release(DR/EC) 40 mg PO QDAY RF: 0 fluticasone propion-salmeterol [Advair Diskus] 250-50 mcg/dose blister with device 1 inh INHALATION BID RF: 0 Combivent Respimat 20-100 mcg/actuation mist 1 puff INHALATION Q6H RF: 0 albuterol sulfate 90 mcg/actuation HFA aerosol inhaler 1 inh inhalation ONCE RF: 0 atorvastatin 40 MG tablet 40 mg PO QHS RF: 0 metoprolol tartrate 100 MG tablet 100 mg PO BID RF: 0 isosorbide mononitrate 120 MG tablet 120 mg PO DAILY RF: 0 multivitamin 1 EACH tablet 1 ea PO DAILY RF: 0 insulin detemir U-100 100 UNITS/ML insulin pen 85 units SC BREAKFAST RF: 0 insulin detemir U-100 100 UNIT/ML solution 100 unit SQ QHS RF: 0 insulin lispro 100 UNIT/ML cartridge 1 sliding scale dose SC UD PRN (Reason: GLUCOSE) RF: 0 warfarin 5 MG tablet 5 mg PO .COMPLEX RF: 0 furosemide 80 mg tablet 80 mg PO QDAY Qty: 90 RF: 3 enalapril maleate 5 mg tablet See Rx Instructions .ROUTE .COMPLEX Qty: 90 RF: 3 isosorbide mononitrate 60 mg tablet extended release 24 hr 60 mg PO QPM Qty: 90 RF: 3 ranolazine 1,000 mg tablet extended release 12 hr 1,000 mg PO BID Qty: 180 RF: 3 nitroglycerin 0.4 mg tablet, sublingual 0.4 mg SUBLINGUAL Q5-15M PRN (Reason: chest pain) Qty: 25 RF: 3 Primary Care Provider: Dmitry Davidson
[2021-04-09] MEDS: Ipratropium/Albuterol Sulfate 3 ML AMPUL.NEB INHALATION ×2 (08:23→20:02)
[2021-04-09] MEDS: Albuterol 2.5 MG/3 ML VIAL.NEB. INHALATION (08:23)
[2021-04-09 08:24] LABS: Absolute Lymphocyte Count 0.83 X10^3/uL (0.83-4.51); Absolute Neutrophil Count 6.4 X10^3/uL (2.0-7.7); Basophil# 0.02 X10^3/uL; Basophil% 0.2 % (0-1); Eosinophil# 0.26 X10^3/uL; Eosinophils% 3.1 % (0-5); Hematocrit 39.8 % (40-54); Hemoglobin 12.5 g/dL (13.0-16.5); Lymphocyte # 0.83 X10^3/ul (0.83-4.51); Lymphocyte % 9.9 % (19-41); Mean Corp Hgb Conc 31.4 g/dL (32-36); Mean Corpuscular Hgb 31.3 pg (27.0-32.0); Mean Corpuscular Volume 99.5 fL (80-94); Mean Platelet Vol. 10.2 fl (6.2-12.0); Monocyte# 0.84 X10^3/uL; NRBC Flagged by Analyzer 0 % (0-5); Neutrophil # 6.41 X10^3/uL (2.7-7.7); Neutrophil % 76.4 % (47-70); Platelet Count 323 K/mm3 (150-450); RBC Distribution Width SD 55.1 fl (35.1-43.9); White Blood Count 8.4 K/mm3 (4.4-11.0)
[2021-04-09 08:37] LABS: International Normalized Ratio 2.2; Prothrombin Time (Protime)PT. 23.6 SECONDS (11.7-14.9)
[2021-04-09 08:38] LABS: Partial Thromboplast Time 40.2 Seconds (24.1-36.2)
[2021-04-09 08:41] LABS: ALB/GLOB Ratio 0.7 RATIO (0.9-2.4); AST(SGOT) 13 U/L (15-37); Alanine Aminotransfer ALT/SGPT 10 U/L (16-61); Alkaline Phosphatase 67 U/L (45-117); Anion Gap 3 (5-15); BUN 30 mg/dL (7-18); BUN/Creat Ratio 16.5 RATIO (10-20); Calcium,Total 8.8 mg/dL (8.5-10.1); Chloride 96 mmol/L (98-107); Creatinine, Serum 1.82 mg/dL (0.70-1.30); EST Glomerular Filtration Rate 40 mL/min (>60); Est Glom Filt Rate - Afr Amer 48 mL/min (>60); Estimated Creatinine Clearance 37.33 ml/min; Globulin 4.5 g/dL (2.2-4.2); Glucose 175 mg/dL (74-106); Protein, Total 7.5 g/dL (6.4-8.2); Sodium Level 136 mmol/L (136-145); Troponin-I HS 34 pg/mL (3.0-78.0)
[2021-04-09 08:42] LABS: BNP,B-Type NATRIURETIC PEPTIDE 852.2 pg/mL (0-100)
[2021-04-09] MEDS: MethylPREDNISolone 125 MG/2 ML Vial IV (08:50)
--- NOTE | 2021-04-09 08:52 | RAD_ITS ---
STUDY: X-RAY CHEST REASON FOR EXAM: Male, 65 years old. dyspnea TECHNIQUE: AP COMPARISON: 01/08/2017 FINDINGS: Two lead cardiac conduction device is seen via the left subclavian vein with lead tips projecting over the right atrium and right ventricle, respectively. Sternal wires and mediastinal surgical clips compatible with prior CABG. EKG leads project over the chest. Interstitial dominant opacities with peripheral subpleural reticulation at the right lung base new since the prior study. Small left pleural effusion. No dense airspace consolidation. There is mild cardiac enlargement. Normal mediastinum and ryan. Central pulmonary vascular congestion. There is atherosclerotic calcification of the aortic arch with tortuosity. No acute bony process. There is no demonstrated abnormality of the visualized soft tissue structures of the upper abdomen. RAD/Chest 1 View (Portable) IMPRESSION: 1. Unfavorable change. Interstitial dominant opacities with vascular congestion and small left pleural effusion, favor CHF/pulmonary edema over infection. Electronically Signed: Jeremy Powell MD ([place]) at 9:06 EDT , Service support ,
[2021-04-09 09:02] LABS: Bacteria 0 SEEN /hpf (None Seen); Mucous, Urine 0 SEEN /hpf (<or=2+); Red Blood Cells-Urine 0 SEEN /hpf (0-5); Squamous Epithelial Cells - UA 0 SEEN /hpf (0-5); White Blood Cells 0 SEEN /hpf (0-5)
[2021-04-09 09:04] LABS: Color, Urine Yellow (Yellow); Glucose, Dipstick Normal (Normal); Ketone-Dipstick Negative (Negative); Leukocyte Esterase-Dipstick Negative /ul (Negative); Nitrite-Dipstick Negative (Negative); Occult Blood-Urine Negative /ul (Negative); Protein-Dipstick Negative (Negative); Specific Gravity, Urine 1.015 (1.002-1.030); Urine Bilirubin Dipstick Negative (Negative); Urine Clarity Clear (Clear); Urine Urobilinogen Normal (Normal)
[2021-04-09 09:12] LABS: Lactic Acid 1.1 mmol/L (0.4-1.9)
--- NOTE | 2021-04-09 09:40 | HP.PCM.HOS_ITS ---
HPI - General General Date of Admission: 04/09/21 Date of Service: 04/09/21 Chief Complaint: Shortness of breath HPI Narrative KENZIE MORELAND, is a 65 M with past medical history significant for ischemic cardiomyopathy with EF of 30% who presented with shortness of breath. Per patient his symptoms have been ongoing for the past 2 weeks. He has noticed increasing swelling involving both lower extremity as well as exertion with minimal activity. Patient has been treated for suspected infectious bronchitis by PCP however condition worsened hence patient decision to present to the ED. His assessment in the emergency department was consistent with congestive heart failure admitted to monitored bed for further management [facility] Medical History (Updated 04/09/21 @ 11:[address] Deon Chawla MD) Abdominal aortic aneurysm Aneurysm of infrarenal abdominal aorta Atherosclerosis of coronary artery bypass graft(s), unspecified, with other forms of angina pectoris Atherosclerosis of coronary artery without angina pectoris Bilateral leg edema Chronic systolic CHF (congestive heart failure) COPD (chronic obstructive pulmonary disease) Diabetes mellitus type 2 with complications Diabetic neuropathy Essential (primary) hypertension Hyperlipidemia Incomplete left bundle branch block Ischemic cardiomyopathy retirement current use of anticoagulant Obesity Obstructive sleep apnea Old anterior wall myocardial infarction Renal insufficiency TIA (transient ischemic attack) Home Medications atorvastatin 40 mg PO QHS 10/07/15 [History Last Taken Unknown] insulin detemir U-100 85 units SC BREAKFAST 10/07/15 [History Last Taken 1/2 dose] isosorbide mononitrate 120 mg PO DAILY 10/07/15 [History Last Taken 01/15/17] metoprolol tartrate 100 mg PO BID 10/07/15 [History Last Taken 01/15/17] multivitamin 1 ea PO DAILY 10/07/15 [History Last Taken Unknown] insulin detemir U-100 100 unit SQ QHS 01/14/17 [History Last Taken Unknown] insulin lispro 100 unit/mL subcutaneous cartridge 1 sliding scale dose SC UD PRN ml 07/10/17 [History Last Taken Unknown] warfarin 5 mg tablet 5 mg PO .COMPLEX 07/10/17 [History Last Taken Unknown] esomeprazole magnesium 40 mg capsule,delayed release 40 mg PO QDAY cap 08/21/17 [History Last Taken Unknown] fluticasone 250 mcg-salmeterol 50 mcg/dose blistr powdr for inhalation 1 inh INHALATION BID 03/13/20 [History Last Taken Unknown] ipratropium 20 mcg-albuterol 100 mcg/actuation mist for inhalation 1 puff INHALATION Q6H 03/13/20 [History Last Taken Unknown] furosemide 80 mg tablet 80 mg PO QDAY #90 tab 06/27/20 [Rx Last Taken Unknown] enalapril maleate 5 mg tablet See Rx Instructions .ROUTE .COMPLEX #90 tablet 10/05/20 [Rx Last Taken Unknown] albuterol sulfate 90 mcg/actuation aerosol inhaler 1 inh INHALATION ONCE 11/08/20 [History Last Taken Unknown] isosorbide mononitrate 60 mg tablet,extended release 24 hr 60 mg PO QPM #90 tab 11/08/20 [Rx Last Taken Unknown] ranolazine 1,000 mg tablet,extended release,12 hr 1,000 mg PO BID #180 tab 12/19/20 [Rx Last Taken Unknown] nitroglycerin 0.4 mg sublingual tablet 0.4 mg SUBLINGUAL Q5-15M PRN #25 tab 03/08/21 [Rx Last Taken Unknown] Allergy/AdvReac Type Severity Reaction Status Date / Time acetaminophen [From Percocet] Allergy Unknown Verified 04/09/21 08:09 buspirone [From BuSpar] Allergy Unknown Verified 04/09/21 08:09 Gadolinium-MRI Contrast Allergy Unknown Verified 04/09/21 08:09 Medium [DYE] nifedipine [From Procardia] Allergy Unknown Verified 04/09/21 08:09 oxycodone [From Percocet] Allergy Unknown Verified 04/09/21 08:09 Penicillins Allergy Unknown Verified 04/09/21 08:09 rosuvastatin [From Crestor] Allergy Unknown Verified 04/09/21 08:09 morphine AdvReac Other Verified 04/09/21 08:09 Family History Father , age 65 CVA (cerebral vascular accident) of CVA during cardiac surgery; also had previous CVA's Myocardial infarction First PR age 60, had multiple PR's Mother Breast cancer COPD (chronic obstructive pulmonary disease) Diabetes Brother , age 52 from sepsis CAD (coronary artery disease) Brother , age 52 after 3 vessel CABG CAD (coronary artery disease) Hx of CABG Sister , age 61 complications of MRSA s/p CABG, 5 vessel CAD (coronary artery disease) Myocardial infarction, Onset Age: 40 Hx of CABG Sister CAD (coronary artery disease) HX PTCA Myocardial infarction, Onset Age: 40 Sister CAD (coronary artery disease) Hx of CABG Myocardial infarction, Onset Age: 58 Sister , in MVA No problems noted. Sister CAD (coronary artery disease) Myocardial infarction, Onset Age: 40 CVA (cerebral vascular accident) had 3 strokes Grandfather , age62 CAD (coronary artery disease) Sudden cardiac Myocardial infarction Surgical History H/O coronary artery bypass surgery History of electrophysiologic study (2004) History of implantable cardiac defibrillator (ICD) (01/15/17) History of left heart catheterization (01/2010) Stented coronary artery Social History Smoking Status: Former smoker ROS ROS Narrative GENERAL: denies fever, chills, HEENT: denies headache, sinus congestion, RESPIRATORY: cough, sputum production, shortness of breath, dyspnea on exertion CARDIAC: denies chest pain, palpitations, orthopnea GASTROINTESTINAL: denies abdominal pain, nausea, GENITOURINARY: denies dysuria, urgency, frequency, EXTREMITY: denies swelling MUSCULOSKELETAL: denies current joint pain or tenderness NEUROLOGIC: denies focal numbness, weakness, tingling HEMATOLOGIC: denies easy bruising and/or hemorrhage INTEGUMENT: denies rashes PSYCHIATRIC: denies suicidal or homicidal ideation Vital Signs Vital Signs Vital Signs: 04/09/21 08:02 04/09/21 08:05 04/09/21 08:08 Temperature 97.9 F 97.9 F Temperature Source Oral Oral Pulse Rate 80 81 Respiratory Rate 34 H 28 H Respiratory Effort Short of Breath Respiratory Depth Deep Respiratory Pattern Tachypnea Blood Pressure 142/93 H 142/93 H Blood Pressure Mean 109 109 Pulse Ox 92 87 Oxygen Delivery Method Room Air Room Air Nasal Cannula Oxygen Flow Rate (L/min) 4 04/09/21 08:30 04/09/21 08:41 Temperature 97.9 F Temperature Source Oral Pulse Rate 75 Respiratory Rate 20 H Respiratory Effort Respiratory Depth Respiratory Pattern Tachypnea Blood Pressure Blood Pressure Mean Pulse Ox 96 Oxygen Delivery Method Nasal Cannula Oxygen Flow Rate (L/min) 4 Weight Weight: 99 kg Body Mass Index (BMI) 34.2 Physical Exam Narrative GENERAL: cooperative HEENT: Atraumatic; EYES; Anicteric, Normal Conjunctiva NECK; supple, normal thyroid, RESPIRATORY: Diminished to auscultation CARDIOVASCULAR: Regular S1 S2, GI: soft, normoactive bowel sounds, : No Renal angle tenderness; EXTREMITIES: edema, no clubbing, MUSCULOSKELETAL: no muscle waisting NEURO: Awake; no lateralizing signs. SKIN: No Rash PSYCH; Flat affect Results Lab / Micro Data Result Diagrams: 04/09/21 08:14 04/09/21 08:14 Labs: Laboratory Results - last 24 hr 04/09/21 08:14: WBC 8.4, RBC 4.00 L, Hgb 12.5 L, Hct 39.8 L, MCV 99.5 H, MCH 31.3, MCHC 31.4 L, RDW Std Deviation 55.1 H, RDW Coeff of Whit 15.0 H, Plt Count 323, MPV 10.2, Immature Gran % (Auto) 0.400, Neut % (Auto) 76.4 H, Lymph % (Auto) 9.9 L, [place] % (Auto) 10.0, Eos % (Auto) 3.1, Baso % (Auto) 0.2, Absolute Neuts (auto) 6.4, Absolute Lymphs (auto) 0.83, Nucleated RBC % 0 04/09/21 08:14: PT 23.6 H, INR 2.2, APTT 40.2 H 04/09/21 08:14: Sodium 136, Potassium 5.0, Chloride 96 L, Carbon Dioxide 37.0 H, Anion Gap 3 L, BUN 30 H, Creatinine 1.82 H, Estim Creat Clear Calc 37.33, Est GFR (MDRD) Af Amer 48 L, Est GFR (MDRD) Non-Af 40 L, BUN/Creatinine Ratio 16.5, Glucose 175 H, Calcium 8.8, Total Bilirubin 0.50, AST 13 L, ALT 10 L, Alkaline Phosphatase 67, Troponin I High Sens 34, Total Protein 7.5, Albumin 3.0 L, Globulin 4.5 H, Albumin/Globulin Ratio 0.7 L 04/09/21 08:14: B-Natriuretic Peptide 852.2 H 04/09/21 08:25: Lactic Acid 1.1 04/09/21 08:54: Urine Color Yellow, Urine Clarity Clear, Urine pH 6.0, Ur Specific [place] 1.015, Urine Protein Negative, Urine Glucose (UA) Normal, Urine Ketones Negative, Urine Occult Blood Negative, Urine Nitrite Negative, Urine Bilirubin Negative, Urine Urobilinogen Normal, Ur Leukocyte Esterase Negative, Urine RBC 0 SEEN, Urine WBC 0 SEEN, Ur Squamous Epith Cells 0 SEEN, Urine Bacteria 0 SEEN, Urine Mucus 0 SEEN Radiology Impression Chest X-Ray 04/09/21 08:52 IMPRESSION: 1. Unfavorable change. Interstitial dominant opacities with vascular congestion and small left pleural effusion, favor CHF/pulmonary edema over infection. Electronically Signed: Jeremy Powell MD ([place]) at 9:06 EDT , Service support , Assessment & Plan Assessment/Plan (1) CHF exacerbation: QUALIFIERS: Heart failure type: systolic Qualified Code(s): I50.23 - Acute on chronic systolic (congestive) heart failure PLAN: Patient is a 65-year-old gentleman presented with progressive shortness of breath 1. Acute on chronic heart failure with use ejection fraction (acute on chronic systolic heart failure) ?Patient has been admitted to a monitored bed currently being managed with strict input and output, daily weight, fluid restriction as well as IV Lasix. Patient had an echo performed on 01/16/2021 with did demonstrate EF of 30% 2. Coronary artery disease ?With previous CABG 3. Ischemic cardiomyopathy ?AICD placement 4. Hypertension - Blood pressure controlled, home medications continued with dose adjustment as needed 5. Dyslipidemia -Patient is on statin therapy, continued at home dose 6. COPD ?Currently not in exacerbation aerosol treatment as needed 7. Diabetes mellitus type 2 with complications including diabetic nephropathy ?Patient is on long-acting insulin did continue in addition to Accu-Cheks before meals and at bedtime with sliding scale coverage 8. Chronic kidney disease stage IIIa ?Kidney function at baseline 9. Obesity with BMI of 34.2 ?Weight loss advised 10. Long-term anticoagulation use ?Etiology not clear in any case INR is therapeutic 11. DVT prophylaxis ?On Coumadin with a therapeutic INR Advance planning; did discuss with the patient and family again (patient's ) regarding advanced directives as well as CODE STATUS. Did explain the various scenarios involved ( FULL CODE, DNR CCA, DNR CCA with no intubation, and DNR CC and what each meant) patient elected to full code with CPR and intubation if needed. Order was placed. Time spent on discussion 18 minutes. Charges/Coding Visit Charges Inpatient E&M: 04874 Init Hosp L3 Procedures Hospitalists Procedures: 72252 Advncd Care Plan 30 Min
[2021-04-09 10:11] LABS: Bedside Glucose 169 mg/dL (70-110)
[2021-04-09] MEDS: Furosemide 40 MG/4 ML Vial IV (10:44)
[2021-04-09] MEDS: Insulin Lispro 100 UNIT/ML INSULN.PEN SC ×3 (12:28→21:12)
[2021-04-09] MEDS: Pantoprazole Sodium 40 MG Tablet PO (12:28)
[2021-04-09 12:36] LABS: Bedside Glucose 217 mg/dL (70-110)
[2021-04-09 13:13] LABS: Troponin-I HS 34 pg/mL (3.0-78.0)
[2021-04-09 14:13] LABS: Troponin-I HS 34 pg/mL (3.0-78.0)
[2021-04-09] MEDS: Furosemide 100 MG/10 ML Vial 60 MG IV ×2 (14:39→21:16)
[2021-04-09 17:36] LABS: Bedside Glucose 305 mg/dL (70-110)
[2021-04-09] MEDS: Budesonide Respules 0.5 MG/2 ML AMPUL.NEB. INHALATION (20:02)
[2021-04-09] MEDS: Atorvastatin Calcium 40 MG Tablet PO (21:07)
[2021-04-09] MEDS: Ranolazine 500 MG Tablet 1000 MG PO (21:17)
[2021-04-09] MEDS: Metoprolol Tartrate 100 MG Tablet PO (21:17)
[2021-04-09 22:50] LABS: Bedside Glucose 316 mg/dL (70-110)
[2021-04-10] VITALS (13 sets, daily range): BP systolic 105–120; BP diastolic 42–51; PULSE 72–90; RESP 16–18; TEMP 36.4–36.7; O2SAT 87–98
[2021-04-10 05:25] LABS: Absolute Lymphocyte Count 0.55 X10^3/uL (0.83-4.51); Absolute Neutrophil Count 7.8 X10^3/uL (2.0-7.7); Basophil# 0.01 X10^3/uL; Basophil% 0.1 % (0-1); Hematocrit 36.4 % (40-54); Hemoglobin 11.8 g/dL (13.0-16.5); Lymphocyte # 0.55 X10^3/ul (0.83-4.51); Lymphocyte % 6.2 % (19-41); Mean Corp Hgb Conc 32.4 g/dL (32-36); Mean Corpuscular Hgb 31.1 pg (27.0-32.0); Mean Platelet Vol. 9.9 fl (6.2-12.0); Monocyte# 0.44 X10^3/uL; NRBC Flagged by Analyzer 0 % (0-5); Neutrophil % 88.2 % (47-70); POSITIVE DIFFERENTIAL YES; Platelet Count 312 K/mm3 (150-450); RBC Distribution Width CV 14.6 % (11.6-14.6); Red Blood Count 3.79 M/mm3 (4.6-6.2); White Blood Count 8.8 K/mm3 (4.4-11.0)
[2021-04-10 05:28] LABS: Differential Indicated SCAN CRITERIA MET
[2021-04-10] MEDS: Furosemide 100 MG/10 ML Vial 60 MG IV (05:29)
[2021-04-10] MEDS: 0.9% Saline Lock 10 ML Syringe IV (05:32)
[2021-04-10 05:37] LABS: International Normalized Ratio 2.3; Prothrombin Time (Protime)PT. 24.8 SECONDS (11.7-14.9)
[2021-04-10 05:47] LABS: Anion Gap 6 (5-15); BUN 39 mg/dL (7-18); BUN/Creat Ratio 20.4 RATIO (10-20); Calcium,Total 8.8 mg/dL (8.5-10.1); Chloride 92 mmol/L (98-107); Creatinine, Serum 1.91 mg/dL (0.70-1.30); EST Glomerular Filtration Rate 38 mL/min (>60); Est Glom Filt Rate - Afr Amer 45 mL/min (>60); Estimated Creatinine Clearance 35.57 ml/min; Glucose 262 mg/dL (74-106); Potassium 4.6 mmol/L (3.5-5.1); Sodium Level 133 mmol/L (136-145)
[2021-04-10] MEDS: Insulin Lispro 100 UNIT/ML INSULN.PEN SC ×2 (06:43→12:06)
[2021-04-10] MEDS: Ipratropium/Albuterol Sulfate 3 ML AMPUL.NEB INHALATION (06:59)
[2021-04-10] MEDS: Budesonide Respules 0.5 MG/2 ML AMPUL.NEB. INHALATION (06:59)
[2021-04-10 07:00] LABS: Bedside Glucose 217 mg/dL (70-110)
--- NOTE | 2021-04-10 07:46 | PN.HOSP_ITS ---
Objective Data Objective Data Vital Signs: Vital Signs Temp Pulse Resp BP Pulse Ox 97.6 F L 79 18 120/51 L 97 04/10/21 07:35 04/10/21 07:35 04/10/21 07:35 04/10/21 07:35 04/10/21 07:35 Oxygen Flow Rate (L/min) 3 Oxygen Delivery Method Nasal Cannula Weight: 96.1 kg Body Mass Index (BMI) 33.5 Intake & Output: Intake and Output for Last 24 Hours 04/08/21 04/09/21 04/10/21 23:59 23:59 23:59 Intake Total 100 / 100 0 / 0 Output Total 2925 / 2925 1050 / 1050 Balance -2825 / -2825 -1050 / -1050 Lab / Micro Data Result Diagrams: 04/10/21 05:08 04/10/21 05:08 Labs: Laboratory Results - last 24 hr 04/09/21 08:14: WBC 8.4, RBC 4.00 L, Hgb 12.5 L, Hct 39.8 L, MCV 99.5 H, MCH 31.3, MCHC 31.4 L, RDW Std Deviation 55.1 H, RDW Coeff of Whit 15.0 H, Plt Count 323, MPV 10.2, Immature Gran % (Auto) 0.400, Neut % (Auto) 76.4 H, Lymph % (Auto) 9.9 L, [place] % (Auto) 10.0, Eos % (Auto) 3.1, Baso % (Auto) 0.2, Absolute Neuts (auto) 6.4, Absolute Lymphs (auto) 0.83, Nucleated RBC % 0 04/09/21 08:14: PT 23.6 H, INR 2.2, APTT 40.2 H 04/09/21 08:14: Sodium 136, Potassium 5.0, Chloride 96 L, Carbon Dioxide 37.0 H, Anion Gap 3 L, BUN 30 H, Creatinine 1.82 H, Estim Creat Clear Calc 37.33, Est GFR (MDRD) Af Amer 48 L, Est GFR (MDRD) Non-Af 40 L, BUN/Creatinine Ratio 16.5, Glucose 175 H, Calcium 8.8, Total Bilirubin 0.50, AST 13 L, ALT 10 L, Alkaline Phosphatase 67, Troponin I High Sens 34, Total Protein 7.5, Albumin 3.0 L, Globulin 4.5 H, Albumin/Globulin Ratio 0.7 L 04/09/21 08:14: B-Natriuretic Peptide 852.2 H 04/09/21 08:19: COVID-19 (STAN) Not Detected 04/09/21 08:25: Lactic Acid 1.1 04/09/21 08:54: Urine Color Yellow, Urine Clarity Clear, Urine pH 6.0, Ur Specific [place] 1.015, Urine Protein Negative, Urine Glucose (UA) Normal, Urine Ketones Negative, Urine Occult Blood Negative, Urine Nitrite Negative, Urine Bilirubin Negative, Urine Urobilinogen Normal, Ur Leukocyte Esterase Negative, Urine RBC 0 SEEN, Urine WBC 0 SEEN, Ur Squamous Epith Cells 0 SEEN, Urine Bacteria 0 SEEN, Urine Mucus 0 SEEN 04/09/21 10:07: POC Glucose 169 H 04/09/21 12:10: Troponin I High Sens 34 04/09/21 12:23: POC Glucose 217 H 04/09/21 13:45: Troponin I High Sens 34 04/09/21 17:12: POC Glucose 305 H 04/09/21 21:10: POC Glucose 316 H 04/10/21 05:08: WBC 8.8, RBC 3.79 L, Hgb 11.8 L, Hct 36.4 L, MCV 96.0 H, MCH 31.1, MCHC 32.4, RDW Std Deviation 52.0 H, RDW Coeff of Whit 14.6, Plt Count 312, MPV 9.9, Immature Gran % (Auto) 0.500, Neut % (Auto) 88.2 H, Lymph % (Auto) 6.2 L, [place] % (Auto) 5.0, Eos % (Auto) 0.0, Baso % (Auto) 0.1, Absolute Neuts (auto) 7.8 H, Absolute Lymphs (auto) 0.55 L, Nucleated RBC % 0 04/10/21 05:08: PT 24.8 H, INR 2.3 04/10/21 05:08: Sodium 133 L, Potassium 4.6, Chloride 92 L, Carbon Dioxide 35.0 H, Anion Gap 6, BUN 39 H, Creatinine 1.91 H, Estim Creat Clear Calc 35.57, Est GFR (MDRD) Af Amer 45 L, Est GFR (MDRD) Non-Af 38 L, BUN/Creatinine Ratio 20.4 H , Glucose 262 H, Calcium 8.8 04/10/21 06:42: POC Glucose 217 H Radiography Diagnostic Testing: Radiology Impression Chest X-Ray 04/09/21 08:52 IMPRESSION: 1. Unfavorable change. Interstitial dominant opacities with vascular congestion and small left pleural effusion, favor CHF/pulmonary edema over infection. Electronically Signed: Jeremy Powell MD ([place]) at 9:06 EDT , Service support , Physical Exam Narrative GENERAL: cooperative HEENT: Atraumatic; EYES; Anicteric, Normal Conjunctiva NECK; supple, normal thyroid, RESPIRATORY: Diminished to auscultation CARDIOVASCULAR: Regular S1 S2, GI: soft, normoactive bowel sounds, : No Renal angle tenderness; EXTREMITIES: edema, no clubbing, MUSCULOSKELETAL: no muscle waisting NEURO: Awake; no lateralizing signs. SKIN: No Rash PSYCH; Flat affect Assessment & Plan Assessment/Plan (1) CHF exacerbation: QUALIFIERS: Heart failure type: systolic Qualified Code(s): I50.23 - Acute on chronic systolic (congestive) heart failure PLAN: Patient is a 65-year-old gentleman presented with progressive shortness of breath 1. Acute on chronic heart failure with use ejection fraction (acute on chronic systolic heart failure) ?Patient has been admitted to a monitored bed currently being managed with strict input and output, daily weight, fluid restriction as well as IV Lasix. Patient had an echo performed on 01/16/2021 with did demonstrate EF of 30% 2. Coronary artery disease ?With previous CABG 3. Ischemic cardiomyopathy ?AICD placement 4. Hypertension - Blood pressure controlled, home medications continued with dose adjustment as needed 5. Dyslipidemia -Patient is on statin therapy, continued at home dose 6. COPD ?Currently not in exacerbation aerosol treatment as needed 7. Diabetes mellitus type 2 with complications including diabetic nephropathy ?Patient is on long-acting insulin did continue in addition to Accu-Cheks before meals and at bedtime with sliding scale coverage 8. Chronic kidney disease stage IIIa ?Kidney function at baseline 9. Obesity with BMI of 34.2 ?Weight loss advised 10. Long-term anticoagulation use ?Etiology not clear in any case INR is therapeutic 11. DVT prophylaxis ?On Coumadin with a therapeutic INR
[2021-04-10] MEDS: Pantoprazole Sodium 40 MG Tablet PO (07:51)
[2021-04-10] MEDS: Ranolazine 500 MG Tablet 1000 MG PO (07:51)
[2021-04-10] MEDS: Metoprolol Tartrate 100 MG Tablet PO (07:51)
[2021-04-10] MEDS: Sodium Chloride 0.65% 1 SPRAY SPRAY.BTL 2 SPRAY NASAL (07:52)
--- NOTE | 2021-04-10 10:43 | CASEMGMT ---
Addendum entered by Amelia Vazquez 04/10/21 11:55: Pt does have WW at home but does not currently use but therapy recommends pt use at discharge, pt aware. Farhan DEL ANGEL CM Original Note: BEAN ALVARADO assessment: Face to Face with patient for initial transition planning/care coordination assessment. BEAN ALVARADO introduced self and role at [facility], pt voices understanding and consents to assessment. Pt's is at bedside and answers some questions at times as well. Pt is on 3L nc and able to speak in full sentences. Pt is A/Ox4 and answers all questions appropriately. Care providers, pharmacy, and demographics verified. Presentation: Pt w/ increased SOB at home and using O2 but does not normally wear during day Admitting dx: CHF exac PCP: Lety Specialists: [facility] Pharmacy: [facility] Insurance: [email or web address] Prescription Benefit: [email or web address] Living Will/HPOA: Pt states has LW/HPOA and is aware that they are not on file at [facility]. Pt's , Mahnaz Williamson, is HPOA. LNOK: Mahnaz Williamson, Living Arrangements: Pt states lives with in 2 story home and states no concerns at home. Pt is independent with ADL's. Transportation: Pt states drives self and states no transportation concerns. DME/HHC: Pt has a concentrator at home that states they purchased previously and pt uses 2L thru cpap at night but has not been using. Per , they do not have portability and pt has not qualified for continuos oxygen in past. states no preference for DME company as long as they are in-network with insurance and would like to see if pt could get a POC after 30 days. Pt to be tested for home oxygen on room air prior to discharge and Shaila DEL ANGEL aware, voices understanding. Pt states no need for any further DME and CM to follow PT/OT evals. Pt states has had HHC in the past but has not been to SNF. Pt states no concerns with going home at discharge. Pt is retired. Pt states does not smoke cigarettes or drink ETOH. Pt states no further concerns/needs. CM to follow for home oxygen need, PT/OT evals, and any further discharge planning/needs. Advised pt/ to ask for CM if any further questions/concerns/needs, voices understanding. Pt Goal: Home Plan: Home, pending therapy evals/O2 testing. Farhan DEL ANGEL CM
[2021-04-10 11:50] LABS: Bedside Glucose 159 mg/dL (70-110)
--- NOTE | 2021-04-10 11:55 | PCM.DC.SUM ---
Providers Date of Admission: 04/09/21 Primary Care Physician: Dr. Dmitry Davidson MD Reason For Visit: CHF Diagnosis Discharge Diagnosis (1) CHF exacerbation: Status: Chronic Code(s): I50.9 - Heart failure, unspecified Qualifiers: Heart failure type: systolic Qualified Code(s): I50.23 - Acute on chronic systolic (congestive) heart failure Medications at Discharge Home Medications atorvastatin 40 mg PO QHS 10/07/15 insulin detemir U-100 85 units SC BREAKFAST 10/07/15 isosorbide mononitrate 120 mg PO DAILY 10/07/15 metoprolol tartrate 100 mg PO BID 10/07/15 multivitamin 1 ea PO DAILY 10/07/15 insulin detemir U-100 100 unit SQ QHS 01/14/17 insulin lispro 100 unit/mL subcutaneous cartridge 1 sliding scale dose SC UD PRN ml 07/10/17 warfarin 5 mg tablet 5 mg PO .COMPLEX 07/10/17 esomeprazole magnesium 40 mg capsule,delayed release 40 mg PO QDAY cap 08/21/17 fluticasone 250 mcg-salmeterol 50 mcg/dose blistr powdr for inhalation 1 inh INHALATION BID 03/13/20 ipratropium 20 mcg-albuterol 100 mcg/actuation mist for inhalation 1 puff INHALATION Q6H 03/13/20 furosemide 80 mg tablet 80 mg PO QDAY #90 tab 06/27/20 enalapril maleate 5 mg tablet See Rx Instructions .ROUTE .COMPLEX #90 tablet 10/05/20 albuterol sulfate 90 mcg/actuation aerosol inhaler 1 inh INHALATION Q4H PRN PRN 11/08/20 isosorbide mononitrate 60 mg tablet,extended release 24 hr 60 mg PO QPM #90 tab 11/08/20 ranolazine 1,000 mg tablet,extended release,12 hr 1,000 mg PO BID #180 tab 12/19/20 nitroglycerin 0.4 mg sublingual tablet 0.4 mg SUBLINGUAL Q5-15M PRN #25 tab 03/08/21 Hospital Course Summary of Care Provided Minutes Spent on Discharge: 35 Hospital Course: Patient is a 65-year-old gentleman presented with progressive shortness of breath 1. Acute on chronic heart failure with use ejection fraction (acute on chronic systolic heart failure) ?Patient has been admitted to a monitored bed currently being managed with strict input and output, daily weight, fluid restriction as well as IV Lasix. Patient had an echo performed on 01/16/2021 with did demonstrate EF of 30% -Patient was expected to stay for at least two midnight however his condition did improve rather faster than expected 2. Acute hypoxic respiratory failure secondary to above ?Patient uses home oxygen at night however he did require oxygen. He was assessed for home oxygen prior to discharge which he did call 2. Coronary artery disease ?With previous CABG 3. Ischemic cardiomyopathy ?AICD placement 4. Hypertension - Blood pressure controlled, home medications continued with dose adjustment as needed 5. Dyslipidemia -Patient is on statin therapy, continued at home dose 6. COPD ?Currently not in exacerbation aerosol treatment as needed 7. Diabetes mellitus type 2 with complications including diabetic nephropathy ?Patient is on long-acting insulin did continue in addition to Accu-Cheks before meals and at bedtime with sliding scale coverage 8. Chronic kidney disease stage IIIa ?Kidney function at baseline 9. Obesity with BMI of 34.2 ?Weight loss advised 10. Long-term anticoagulation use ?Etiology not clear in any case INR is therapeutic 11. DVT prophylaxis ?On Coumadin with a therapeutic INR Physical Exam Narrative GENERAL: cooperative HEENT: Atraumatic; EYES; Anicteric, Normal Conjunctiva NECK; supple, normal thyroid, RESPIRATORY: Diminished to auscultation CARDIOVASCULAR: Regular S1 S2, GI: soft, normoactive bowel sounds, : No Renal angle tenderness; EXTREMITIES: Trace edema, no clubbing, MUSCULOSKELETAL: no muscle waisting NEURO: Awake; no lateralizing signs. SKIN: No Rash PSYCH; Flat affect Weight / BMI Weight Weight: 96.1 kg Body Mass Index (BMI) 33.5 ABG / Lab / Microbiology Data Result Diagrams: 04/10/21 05:08 04/10/21 05:08 Laboratory: Laboratory Results - last 24 hr 04/09/21 12:10: Troponin I High Sens 34 04/09/21 12:23: POC Glucose 217 H 04/09/21 13:45: Troponin I High Sens 34 04/09/21 17:12: POC Glucose 305 H 04/09/21 21:10: POC Glucose 316 H 04/10/21 05:08: WBC 8.8, RBC 3.79 L, Hgb 11.8 L, Hct 36.4 L, MCV 96.0 H, MCH 31.1, MCHC 32.4, RDW Std Deviation 52.0 H, RDW Coeff of Whit 14.6, Plt Count 312, MPV 9.9, Immature Gran % (Auto) 0.500, Neut % (Auto) 88.2 H, Lymph % (Auto) 6.2 L, Snyder % (Auto) 5.0, Eos % (Auto) 0.0, Baso % (Auto) 0.1, Absolute Neuts (auto) 7.8 H, Absolute Lymphs (auto) 0.55 L, Nucleated RBC % 0 04/10/21 05:08: PT 24.8 H, INR 2.3 04/10/21 05:08: Sodium 133 L, Potassium 4.6, Chloride 92 L, Carbon Dioxide 35.0 H, Anion Gap 6, BUN 39 H, Creatinine 1.91 H, Estim Creat Clear Calc 35.57, Est GFR (MDRD) Af Amer 45 L, Est GFR (MDRD) Non-Af 38 L, BUN/Creatinine Ratio 20.4 H, Glucose 262 H, Calcium 8.8 04/10/21 06:42: POC Glucose 217 H 04/10/21 11:22: POC Glucose 159 H Microbiology: Microbiology 04/09/21 08:54 Urine Catheter - Catheter Urine Culture - Preliminary Alpha hemolytic organism D/C Instructions Discharge Diet: No restrictions, 1800 Calorie Control Diet and 8 Cup Fluid Restriction Discharge Activity: Return to Normal Activity Call your doctor if you observe: Fever of 101 or Higher, Shortness of breath, Fainting spells and Chest pain Meaningful Use Info Meaningful Use Diagnoses (Choose all that apply): CHF CHF JOSÉ/ARB ordered at discharge?: No Reason JOSÉ/ARB not ordered?: Worsening renal disease Documented LVEF (%): 30 Discharge Plan Admission Admit Date/Time: 04/09/21 09:49 Attending Provider: Deon Chawla Primary Care Provider: Dmitry Daivdson Instructions Patient Instructions: CHF Ch Discharge Orders/Prescriptions Prescriptions: Continued esomeprazole magnesium 40 mg capsule,delayed release(DR/EC) 40 mg PO QDAY RF: 0 fluticasone propion-salmeterol [Advair Diskus] 250-50 mcg/dose blister with device 1 inh INHALATION BID RF: 0 Combivent Respimat 20-100 mcg/actuation mist 1 puff INHALATION Q6H RF: 0 albuterol sulfate 90 mcg/actuation HFA aerosol inhaler 1 inh inhalation Q4H PRN PRN (Reason: Shortness Of Breath) RF: 0 atorvastatin 40 MG tablet 40 mg PO QHS RF: 0 metoprolol tartrate 100 MG tablet 100 mg PO BID RF: 0 isosorbide mononitrate 120 MG tablet 120 mg PO DAILY RF: 0 multivitamin 1 EACH tablet 1 ea PO DAILY RF: 0 insulin detemir U-100 100 UNITS/ML insulin pen 85 units SC BREAKFAST RF: 0 insulin detemir U-100 100 UNIT/ML solution 100 unit SQ QHS RF: 0 insulin lispro 100 UNIT/ML cartridge 1 sliding scale dose SC UD PRN (Reason: GLUCOSE) RF: 0 warfarin 5 MG tablet 5 mg PO .COMPLEX RF: 0 furosemide 80 mg tablet 80 mg PO QDAY Qty: 90 RF: 3 enalapril maleate 5 mg tablet See Rx Instructions .ROUTE .COMPLEX Qty: 90 RF: 3 isosorbide mononitrate 60 mg tablet extended release 24 hr 60 mg PO QPM Qty: 90 RF: 3 ranolazine 1,000 mg tablet extended release 12 hr 1,000 mg PO BID Qty: 180 RF: 3 nitroglycerin 0.4 mg tablet, sublingual 0.4 mg SUBLINGUAL Q5-15M PRN (Reason: chest pain) Qty: 25 RF: 3 Referrals / Follow Up: Dmitry Davidson MD [Primary Care Provider] - In 1 Week Disposition Disposition (needs filled in before D/C Order can be placed): Home, Self Care Charges/Coding Visit Charges Inpatient E&M: 96852 Disch Hosp
--- NOTE | 2021-04-10 12:00 | CASEMGMT ---
Pt qualifies for 2L [place] home oxygen w/ exertion and referral faxed to [employer]. Shaila DEL ANGEL aware to use [employer] e-tank that is already at [facility] and [facility] update on referral and tank used, voices understanding. Farhan DEL ANGEL CM
--- NOTE | 2021-04-10 12:08 | PHA.DC.MR ---
Pharmacy Service has performed discharge medication reconciliation for this patient. The patient's discharge medication list was reviewed for discrepancies and discrepancies were resolved. Home Medications atorvastatin 40 mg PO QHS 10/07/15 insulin detemir U-100 85 units SC BREAKFAST 10/07/15 isosorbide mononitrate 120 mg PO DAILY 10/07/15 metoprolol tartrate 100 mg PO BID 10/07/15 multivitamin 1 ea PO DAILY 10/07/15 insulin detemir U-100 100 unit SQ QHS 01/14/17 insulin lispro 100 unit/mL subcutaneous cartridge 1 sliding scale dose SC UD PRN ml 07/10/17 warfarin 5 mg tablet 5 mg PO .COMPLEX 07/10/17 esomeprazole magnesium 40 mg capsule,delayed release 40 mg PO QDAY cap 08/21/17 fluticasone 250 mcg-salmeterol 50 mcg/dose blistr powdr for inhalation 1 inh INHALATION BID 03/13/20 ipratropium 20 mcg-albuterol 100 mcg/actuation mist for inhalation 1 puff INHALATION Q6H 03/13/20 furosemide 80 mg tablet 80 mg PO QDAY #90 tab 06/27/20 enalapril maleate 5 mg tablet See Rx Instructions .ROUTE .COMPLEX #90 tablet 10/05/20 albuterol sulfate 90 mcg/actuation aerosol inhaler 1 inh INHALATION Q4H PRN PRN 11/08/20 isosorbide mononitrate 60 mg tablet,extended release 24 hr 60 mg PO QPM #90 tab 11/08/20 ranolazine 1,000 mg tablet,extended release,12 hr 1,000 mg PO BID #180 tab 12/19/20 nitroglycerin 0.4 mg sublingual tablet 0.4 mg SUBLINGUAL Q5-15M PRN #25 tab 03/08/21
== END 2021-04-10 13:49 | disposition home or self-care (01) | DRG 291 ==
LOC: ED 08:36 → PCU 10:51
PROVIDERS: Admitting Provider Internal Medicine; Emergency Provider Student in an Organized Health Care Education/Training Program; PCP Family Medicine; Visit Provider Internal Medicine
DX: I13.0 Hypertensive heart and chronic kidney disease with heart failure and stage 1 through stage 4 chronic kidney disease, or unspecified chronic kidney disease (principal); I50.23 Acute on chronic systolic (congestive) heart failure; J96.01 Acute respiratory failure with hypoxia; E11.22 Type 2 diabetes mellitus with diabetic chronic kidney disease; N18.31 Chronic kidney disease, stage 3a; E11.40 Type 2 diabetes mellitus with diabetic neuropathy, unspecified; E66.9 Obesity, unspecified; Z68.34 Body mass index [BMI] 34.0-34.9, adult; E78.5 Hyperlipidemia, unspecified; I25.5 Ischemic cardiomyopathy; J44.9 Chronic obstructive pulmonary disease, unspecified; I25.10 Atherosclerotic heart disease of native coronary artery without angina pectoris; G47.33 Obstructive sleep apnea (adult) (pediatric); I25.2 Old myocardial infarction; Z95.810 Presence of automatic (implantable) cardiac defibrillator; Z79.01 Long term (current) use of anticoagulants; Z79.4 Long term (current) use of insulin; Z79.899 Other long term (current) drug therapy; Z79.51 Long term (current) use of inhaled steroids; Z87.891 Personal history of nicotine dependence
CPT/HCPCS: 36415; 71045; 80048; 80053; 81001; 82962; 83605; 83880; 84484; 85025; 85610; 85730; 87040; 87077; 87086; 87088; 87635; 93005; 94640; 97162; 97166; 97802; 99251; 99285; U0005; A4216; G0463; J1940; U0003

== ENCOUNTER → 2021-04-19 12:30 | Outpatient (CLI) | payer MEDICARE, SELFPAY ==
[2021-04-19 15:15] LABS: Anion Gap 4 (5-15); BUN 34 mg/dL (7-18); BUN/Creat Ratio 18.4 RATIO (10-20); Calcium,Total 8.7 mg/dL (8.5-10.1); Chloride 100 mmol/L (98-107); Creatinine, Serum 1.85 mg/dL (0.70-1.30); EST Glomerular Filtration Rate 39 mL/min (>60); Est Glom Filt Rate - Afr Amer 47 mL/min (>60); Glucose 144 mg/dL (74-106); Potassium 4.3 mmol/L (3.5-5.1); Sodium Level 143 mmol/L (136-145)
== END ==
PROVIDERS: PCP Family Medicine; Referring Provider Family Medicine; Visit Provider Family Medicine
DX: I50.22 Chronic systolic (congestive) heart failure (principal)
CPT/HCPCS: 36415; 80048